=== PATIENT | female | born 1955 | race Caucasian/White ===

== ENCOUNTER → 2017-11-20 | Outpatient (CLI) | payer BC ==
--- NOTE | 2017-11-20 13:21 | CT ---
HISTORY: Sinus disease, pain to the left frontal and parietal regions Study: CT of the sinuses Comparison: None Technique: Serial axial images were obtained through the sinuses without infusion of IV contrast. Cor onal sagittal reformatted images were also submitted. Findings: Images demonstrate a somewhat rounded soft tissue density seen within the posterior inferior aspect o f the left maxillary sinus suggesting a retention cyst or mucosal polyp. Minimal mucosal thickening i s demonstrated within the right maxillary sinus. Mild mucosal thickening of the ethmoid air cells is also noted. The frontal and sphenoid sinuses are well aerated without evidence of significant mucosal thickening or air-fluid levels. The ostiomeatal complexes are patent bilaterally. IMPRESSION: Ethmoid and maxillary sinus disease as noted above. Reported By:
== END ==
LOC: RAD 09:52
PROVIDERS: ATTEND Internal Medicine
DX: J32.8 Other chronic sinusitis (principal)
CPT/HCPCS: 70486

== ENCOUNTER → 2017-12-10 | Outpatient (CLI) | payer BC ==
--- NOTE | 2017-12-10 12:10 | MRI ---
MRI BRAIN WITHOUT CONTRAST CLINICAL HISTORY: 62-year-old female with unspecified visual disturbance with headache on the left st atus post fall. COMPARISON: None. TECHNIQUE: Multiplanar, multisequence MR images of the brain were obtained without contrast. FINDINGS: There is no evidence of diffusion restriction. The craniocervical junction is normal. Pitui tary and optic nerve complex are normal. There are few scattered punctate T2 FLAIR signal hyperintens ities are present within the periventricular and supraventricular white matter that are nonspecific i n appearance but most likely to represent microvascular white matter ischemic changes. Normal signal characteristics and morphology are demonstrated within the cerebral cortex, corpus callosum, deep gra y nuclei, brainstem and cerebellum. The major vascular flow voids, to include the dural venous sinuse s, are intact. Mild age advanced cortical volume loss is present, with commensurate sulcal and ventri cular prominence. The basilar cisterns are normal. The orbits and globes are within normal limits. Polypoid mucosal thickening floor of the left maxilla ry sinus. The remaining paranasal sinuses, tympanic cavities and mastoids are clear. IMPRESSION: 1. No acute ischemic or hemorrhagic insult. 2. Mild, chronic microvascular white matter ischemic disease with associated volume loss. 3. Polypoid mucosal thickening floor of left maxillary sinus, correlate for sinusitis. Reported By:
== END ==
LOC: RAD 10:17
PROVIDERS: ATTEND Internal Medicine
DX: H53.8 Other visual disturbances (principal); Z87.828 Personal history of other (healed) physical injury and trauma
CPT/HCPCS: 70551